=== PATIENT | male | born 1980 | race Caucasian/White ===

== ENCOUNTER 2022-12-26 23:07 | Emergency (ER) | payer OTHER ==
[2022-12-26] MEDS ORDERED: dexAMETHasone 10 MG/ML VIAL ONE (23:41)
[2022-12-26] MEDS ORDERED: IPRATROPIUM BROM 0.5MG/2.5ML ONE (23:42)
[2022-12-26] MEDS ORDERED: ALBUTEROL 2.5 MG/3 ML NEB SOL ONE (23:42)
[2022-12-27 00:35] LABS: SARS-CoV-2 Antigen Rapid Res Negative (Negative)
--- NOTE | 2022-12-27 01:12 | EDPHYS ---
Physician Documentation [facility] Name: Manny Espinosa Age: 42 yrs Sex: Male : 1980 Arrival Date: 12/26/2022 Time: 23:07 Bed 15 Private MD: ED Physician Chip Langston HPI: 12/27 01:03 This 42 yrs old Male presents to ER via Ambulatory with complaints of Congestion, kb Shortness Of Breath. 01:03 The patient or guardian reports cough, that is intermittent, described as moderate, kb difficulty breathing, flu symptoms, low-grade fever. Onset: The symptoms/episode began/occurred 1 week(s) ago. Severity of symptoms: At their worst the symptoms were moderate, in the emergency department the symptoms are unchanged. Modifying factors: The symptoms are alleviated by nothing, the symptoms are aggravated by nothing. Associated signs and symptoms: Pertinent positives: fever, rhinorrhea. The patient has not experienced similar symptoms in the past. The patient has not recently seen a physician. Historical: - Allergies: 12/26 23:32 No Known Allergies; vc1 - Home Meds: 23:32 None [Active]; vc1 - PMHx: 23:32 None; vc1 - PSHx: 23:32 None; vc1 - Immunization history:: Client reports having NOT received the Covid vaccine. - Social history:: Smoking status: Patient/guardian denies using tobacco, Stopped _ months ago .25. ROS: 12/27 01:00 Abdomen/GI: Negative for abdominal pain, nausea, vomiting, diarrhea, and constipation. kb Constitutional: Positive for fever. Respiratory: Positive for cough, shortness of breath. All other systems are negative. Exam: 01:00 Constitutional: This is a well developed, well nourished patient who is awake, alert, kb and in no acute distress. Head/Face: Normocephalic, atraumatic. ENT: Moist Mucous membranes Cardiovascular: Regular rate and rhythm with a normal S1 and S2. No gallops, murmurs, or rubs. No pulse deficits. Abdomen/GI: Soft, non-tender. No distention Skin: Warm, dry with normal turgor. Normal color. MS/ Extremity: Pulses equal, no cyanosis. Neurovascular intact. Full, normal range of motion. Neuro: Awake and alert, GCS 15, oriented to person, place, time, and situation. Moves all extremities. Normal gait. 01:00 Respiratory: mild respiratory distress is noted, Respirations: labored breathing, that is mild, Breath sounds: wheezing: expiratory that is mild, that is moderate, is scattered. Vital Signs: 12/26 23:28 BP 192 / 115; Pulse 89; Resp 30; Temp 98.6; Pulse Ox 98% ; vc1 23:59 BP 177 / 98; Pulse 71; Pulse Ox 99% on R/A; lg3 12/27 01:04 BP 156 / 86; Pulse 92; Resp 19 S; Pulse Ox 100% on R/A; lg3 MDM: 12/26 23:16 Patient medically screened. 12/27 01:02 Differential diagnosis: viral Infection, bacterial infection, URI, bronchitis, kb pneumonia. Data reviewed: vital signs, nurses notes. Test considered but Not performed: Labs: cbc, basic, blood cultures and lactate considered, but pt is feeling better after treatment. VSS. Counseling: I had a detailed discussion with the patient and/or guardian regarding: the historical points, exam findings, and any diagnostic results supporting the discharge/admit diagnosis, lab results, radiology results, the need for outpatient follow up, a family practitioner, to return to the emergency department if symptoms worsen or persist or if there are any questions or concerns that arise at home. 01:11 Management of patient was discussed with the following: Dr Langston recommends mac triplett. ED course: Pt educated on strict return precautions. Verbal understanding received. . 12/26 23:21 Order name: Flu 12/26 23:43 Order name: SARS RAPID; Complete Time: 00:46 oe 12/26 23:21 Order name: Chest Single View XRAY 12/27 00:57 Order name: Vital Signs; Complete Time: 01:06 kb Administered Medications: 12/26 23:57 Drug: DuoNeb Nebulize (3:1) (2.5 mg - 0.5 mg) 3 ml Route: Nebulizer; 3 12/27 01:04 Follow up: Response: No adverse reaction 3 12/26 23:57 Drug: Dexamethasone IM 10 mg Route: IM; Site: right deltoid; 3 12/27 01:04 Follow up: Response: No adverse reaction 3 01:11 CANCELLED (Physician Discretion): AZITHromycin PO 500 mg PO once kb 01:19 Drug: Rocephin (cefTRIAXone) IM 1 grams Route: IM; Site: left gluteus; lg3 01:19 Follow up: Response: No adverse reaction lg3 01:19 Drug: LevOfloxacin PO 750 mg Route: PO; lg3 01:19 Follow up: Response: No adverse reaction lg3 Disposition: 20:11 Co-signature as Attending Physician, Chip Langston MD I agree with the assessment sp4 and plan of care. I reviewed the patient's care provided by the Advanced Practice Provider and agree with the diagnosis and treatment plan. Disposition Summary: 12/27/22 01:12 Discharge Ordered Location: Home kb Condition: Stable kb Diagnosis - Pneumonia, unspecified organism kb Followup: kb - With: Emergency Department - When: As needed - Reason: Worsening of condition Followup: kb - With: Private Physician - When: 2 - 3 days - Reason: Recheck today's complaints, Continuance of care, Re-evaluation by your physician Discharge Instructions: - Discharge Summary Sheet kb - Community-Acquired Pneumonia, Adult, [id number] kb Forms: - Medication Reconciliation Form kb - Thank You Letter kb - Antibiotic Education kb - Prescription Opioid Use kb - Patient Portal Instructions kb - Leadership Thank You Letter kb Prescriptions: - albuterol sulfate 90 mcg/actuation Inhalation HFA Aerosol Inhaler - inhale 2 puff by INHALATION route every 4-6 hours As needed; 1 unit; Refills: kb 0, Product Selection Permitted - Prednisone 20 mg Oral Tablet - take 1 tablet by ORAL route once daily for 5 days; 5 tablet; Refills: 0, kb Product Selection Permitted - levofloxacin 750 mg Oral Tablet - take 1 tablet by ORAL route once daily; 7 tablet; Refills: 0, Product Selection kb Permitted Signatures: Dispatcher [employer] Jimena Sanford FNP-C FNP-Ckb Gibson, Lacie RN RN lg3 Estelita Rucker RN RN vc1 Chip Langston MD MD sp4 Corrections: (The following items were deleted from the chart) 01:11 01:00 AZITHromycin PO 500 mg PO once ordered. kb kb 01:11 01:11 AZITHromycin PO 500 mg PO once ordered. kb kb
--- NOTE | 2022-12-27 01:12 | ER ---
Nurse's Notes [facility] Name: Manny Espinosa Age: 42 yrs Sex: Male : 1980 Arrival Date: 12/26/2022 Time: 23:07 Bed 15 Private MD: Diagnosis: Pneumonia, unspecified organism Presentation: 12/26 23:28 Chief complaint: Patient states: I've been short of breath for a week, with a cough and vc1 diarrhea. Coronavirus screen: Vaccine status: Patient reports being unvaccinated. Client denies travel out of the [place] in the last 14 days. At this time, the client does not indicate any symptoms associated with coronavirus-19. Ebola Screen: Patient negative for fever greater than or equal to 101.5 degrees Fahrenheit, and additional compatible Ebola Virus Disease symptoms Patient denies exposure to infectious person. Patient denies travel to an Ebola-affected area in the 21 days before illness onset. No symptoms or risks identified at this time. Initial Sepsis Screen: Does the patient meet any 2 criteria? No. Patient's initial sepsis screen is negative. Does the patient have a suspected source of infection? No. Patient's initial sepsis screen is negative. Risk Assessment: Do you want to hurt yourself or someone else? Patient reports no desire to harm self or others. Onset of symptoms is unknown. 23:28 Method Of Arrival: Ambulatory vc1 23:28 Acuity: ERLINDA 3 vc1 Triage Assessment: 23:33 General: Appears in no apparent distress. uncomfortable, Behavior is cooperative, vc1 appropriate for age. Pain: Denies pain. EENT: No deficits noted. No signs and/or symptoms were reported regarding the EENT system. Neuro: Level of Consciousness is awake, alert, obeys commands, Oriented to person, place, time, situation, Appropriate for age. Cardiovascular: No deficits noted. Respiratory: Reports shortness of breath at rest Airway is patent Respiratory effort is even, unlabored, Respiratory pattern is symmetrical, tachypnea Breath sounds with wheezes. GI: No deficits noted. No signs and/or symptoms were reported involving the gastrointestinal system. : No deficits noted. No signs and/or symptoms were reported regarding the genitourinary system. Derm: No deficits noted. No signs and/or symptoms reported regarding the dermatologic system. Musculoskeletal: No deficits noted. No signs and/or symptoms reported regarding the musculoskeletal system. Historical: - Allergies: 23:32 No Known Allergies; vc1 - Home Meds: 23:32 None [Active]; vc1 - PMHx: 23:32 None; vc1 - PSHx: 23:32 None; vc1 - Immunization history:: Client reports having NOT received the Covid vaccine. - Social history:: Smoking status: Patient/guardian denies using tobacco, Stopped _ months ago .25. Screenin:34 Abuse screen: Denies threats or abuse. Nutritional screening: No deficits noted. vc1 Tuberculosis screening: No symptoms or risk factors identified. 23:34 [facility] ED Fall Risk Assessment (Adult) History of falling in the last 3 months, vc1 including since admission No falls in past 3 months (0 pts) Confusion or Disorientation No (0 pts) Intoxicated or Sedated No (0 pts) Impaired Gait No (0 pts) Mobility Assist Device Used No (0 pt) Altered Elimination No (0 pt) Score/Fall Risk Level 0 - 2 = Low Risk Oriented to surroundings, Maintained a safe environment, Educated pt \T\ family on fall prevention, incl call for assistance when getting out of bed. Assessment: 23:57 General: Appears in no apparent distress. comfortable, Behavior is calm, cooperative. lg3 Pain: Denies pain. Neuro: No deficits noted. Joyner Agitation-Sedation Scale (RASS): 0 - Alert and Calm Level of Consciousness is awake, alert, obeys commands, Oriented to person, place, time, situation. Cardiovascular: No deficits noted. Capillary refill < 3 seconds Clubbing of nail beds is absent JVD is absent Patient's skin is warm and dry. Respiratory: Reports shortness of breath cough that is Airway is patent Respiratory effort is even, Respiratory pattern is tachypnea Breath sounds with wheezes bilaterally. GI: Abdomen is round non-distended, Abd is soft and non tender X 4 quads. Reports diarrhea. : No deficits noted. No signs and/or symptoms were reported regarding the genitourinary system. EENT: No deficits noted. No signs and/or symptoms were reported regarding the EENT system. Derm: No deficits noted. No signs and/or symptoms reported regarding the dermatologic system. Skin is intact, is healthy with good turgor, Skin is dry, Skin is normal, Skin temperature is warm. Musculoskeletal: No deficits noted. No signs and/or symptoms reported regarding the musculoskeletal system. Circulation, motion, and sensation intact. Range of motion: intact in all extremities. 12/27 01:04 Reassessment: Patient appears in no apparent distress at this time. No changes from lg3 previously documented assessment. Patient and/or family updated on plan of care and expected duration. Pain level reassessed. Patient is alert, oriented x 3, equal unlabored respirations, skin warm/dry/pink. Patient states feeling better. Patient states symptoms have improved. Vital Signs: 12/26 23:28 BP 192 / 115; Pulse 89; Resp 30; Temp 98.6; Pulse Ox 98% ; vc1 23:59 BP 177 / 98; Pulse 71; Pulse Ox 99% on R/A; lg3 12/27 01:04 BP 156 / 86; Pulse 92; Resp 19 S; Pulse Ox 100% on R/A; lg3 ED Course: 12/26 23:10 Patient arrived in ED. kj1 23:16 Jimena King FNP-C is [facility]. kb 23:16 Chip Langston MD is Attending Physician. kb 23:29 Mae Givens RN is Primary Nurse. lg3 23:31 Triage completed. vc1 23:33 Arm band placed on right wrist. vc1 23:34 Patient has correct armband on for positive identification. Placed in gown. Bed in low vc1 position. Call light in reach. Pulse ox on. NIBP on. 23:53 Chest Single View XRAY In Process Unspecified. EDMS 23:57 Door closed. Noise minimized. Warm blanket given. lg3 23:57 SARS RAPID Sent. lg3 23:57 COVID-19 SARS RT PCR Sent. lg3 23:57 Flu Sent. lg3 23:57 Patient maintains SpO2 saturation greater than 95% on room air. lg3 12/27 01:25 No provider procedures requiring assistance completed. Patient did not have IV access lg3 during this emergency room visit. Administered Medications: 12/26 23:57 Drug: DuoNeb Nebulize (3:1) (2.5 mg - 0.5 mg) 3 ml Route: Nebulizer; 3 12/27 01:04 Follow up: Response: No adverse reaction lg3 08/14 23:57 Drug: Dexamethasone IM 10 mg Route: IM; Site: right deltoid; lg3 12/27 01:04 Follow up: Response: No adverse reaction lg3 01:11 CANCELLED (Physician Discretion): AZITHromycin PO 500 mg PO once kb 01:19 Drug: Rocephin (cefTRIAXone) IM 1 grams Route: IM; Site: left gluteus; lg3 01:19 Follow up: Response: No adverse reaction lg3 01:19 Drug: LevOfloxacin PO 750 mg Route: PO; lg3 01:19 Follow up: Response: No adverse reaction lg3 Medication: 12/26 23:34 VIS not applicable for this client. vc1 Outcome: 12/27 01:12 Discharge ordered by . kb 01:26 Discharged to home ambulatory. lg3 01:26 Condition: stable 01:26 Discharge instructions given to patient, Instructed on discharge instructions, follow up and referral plans. medication usage, Demonstrated understanding of instructions, follow-up care, medications, Prescriptions given X 3. 01:26 Patient left the ED. lg3 Signatures: Dispatcher [employer] EDJimena Denton, VICKI-C [employer] ENGINEER-Jojo Morgan kj1 Mae Givens, RN RN lg3 Estelita Rucker RN RN vc1
[2022-12-27] MEDS ORDERED: CEFTRIAXONE 1000 MG/VIAL ONE (01:23)
[2022-12-27] MEDS ORDERED: LIDOCAINE 1% MPF 2 ML AMPULE ONE (01:23)
[2022-12-27] MEDS ORDERED: levoFLOXacin 750 MG TAB ONE (01:23)
[2022-12-27 01:31] VITALS: TEMP 98.6
[2022-12-27 01:33] VITALS: BP 156/86; O2SAT 100
--- NOTE | 2022-12-27 13:02 | RAD REPORT ---
EXAM DESCRIPTION: RAD - Chest Single View - 12/26/2022 11:51 pm CLINICAL HISTORY: Cough and congestion.. TECHNIQUE: AP portable chest x-ray upright on 12/26/2022, at 23: 41. COMPARISON: None. FINDINGS: Heart: Normal size and configuration. Mediastinal Structures: Normal and midline.. Lung Obrien: There is a mild infiltrate in the right upper and mid lung obrien. Pulmonary Vascularity: Normal. Pleural Space: No active disease. Bony Structures: Normal. IMPRESSION: 1. Mild infiltrate in the right upper and mid lung obrien. Electronically signed by: Toño Malloy MD 12/27/2022 12:05 AM CDT Due to temporary technical issues with the PACS/Fluency reporting system, reports are being signed by the in house radiologists without review as a courtesy to insure prompt reporting. The interpreting radiologist is fully responsible for the content of the report.
== END 2022-12-27 01:26 | disposition home or self-care (01) ==
LOC: ER 23:07
DX: J18.9 Pneumonia, unspecified organism (principal); Z20.822 Contact with and (suspected) exposure to COVID-19
CPT/HCPCS: 36415; 87804 ×2; 71045; 94640; 96372; 99285; 87811; J7613; J7644; J1100; J0696